=== PATIENT | female | born 1945 | race Caucasian/White ===

== ENCOUNTER → 2018-11-09 | Outpatient (CLI) | payer MEDICARE ==
--- NOTE | 2018-11-18 09:27 | MM ---
Reason for exam: screening (asymptomatic). Last mammogram was performed 6 years and 2 months ago. History: Patient is postmenopausal. Took estrogen for 6 years 8 months. MG Screening Mammo w CAD Bilateral CC and MLO view(s) were taken. Prior study comparison: September 07, 2012, bilateral digital screening mammo w/CAD. August 14, 2010, bilateral digital screening mammogram. The breast tissue is heterogeneously dense. This may lower the sensitivity of mammography. No suspicious abnormality. No significant changes when compared with prior studies. ASSESSMENT: Negative, BI-RAD 1 RECOMMENDATION: Routine screening mammogram of both breasts in 1 year.
== END | disposition home or self-care (01) ==
LOC: RADMAMWWP 15:41
PROVIDERS: ATTEND Internal Medicine
DX: Z12.31 Encounter for screening mammogram for malignant neoplasm of breast (principal)
CPT/HCPCS: 77067

== ENCOUNTER → 2018-11-13 | Outpatient (CLI) | payer MEDICARE ==
--- NOTE | 2018-11-14 06:23 | US ---
EXAMINATION TYPE: US kidneys/renal and bladder DATE OF EXAM: 11/13/2018 COMPARISON: NONE CLINICAL HISTORY: N18.3 CKD. Difficult exam due to overlying bowel gas EXAM MEASUREMENTS: Right Kidney: 11.4 x 3.9 x 4.9 cm Left Kidney: 10.4 x 4.9 x 4.3 cm Right Kidney: No hydronephrosis or masses seen Left Kidney: Cystic area lower pole measuring 4.5 x 4.6 x 4.1 cm Bladder: wnl Bilateral Jets seen: Yes There is no evidence for hydronephrosis at this point in time. No nephrolithiasis is seen. The ur inary bladder is anechoic. Bilateral ureteral jets are seen. Suboptimal study due to overlying bowel gas per technologist. There appears to be 4.6 x 4.5 cm exophy tic simple appearing cyst lower pole of the left kidney. IMPRESSION: Suboptimal study, no hydronephrosis is noted bilaterally. Exophytic simple appearing 4.6 cm cyst lowe r pole of left kidney is noted.
== END ==
LOC: RADUSWWP 15:23
PROVIDERS: ATTEND Internal Medicine
DX: N28.1 Cyst of kidney, acquired (principal); N18.3 Chronic kidney disease, stage 3 (moderate)
CPT/HCPCS: 76770

== ENCOUNTER → 2019-02-21 | Outpatient (CLI) | payer MEDICARE ==
--- NOTE | 2019-02-22 09:39 | XR ---
EXAMINATION TYPE: XR lumbar spine 2 or 3V DATE OF EXAM: 02/21/2019 COMPARISON: NONE HISTORY: 73-year-old female low back pain TECHNIQUE: 3 views FINDINGS: 5 lumbar type vertebral bodies. Hypertrophic facet arthropathy throughout. 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 Moderate to advanced multilevel discogenic plate degenerative change with disc space loss, disc vacuum, endplate sclerosis, and spondylosis. Eusebio tebral body heights are preserved. There is grade 1 retrolisthesis at L2-L5 levels and grade 1 jeremiah listhesis at L5-S1. IMPRESSION: 1. No vertebral compression collapse. 2. Moderate to advanced multilevel disc/endplate degenerative changes as well as hypertrophic facet a rthropathy. 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
--- NOTE | 2019-02-22 10:21 | XR ---
EXAMINATION TYPE: XR cervical spine limited DATE OF EXAM: 02/21/2019 COMPARISON: NONE HISTORY: 73-year-old female segmental and somatic dysfunction of cervical spine TECHNIQUE: 4 views FINDINGS: Hypertrophic facet and uncovertebral joint arthropathy, greatest in the mid cervical spine where mode rate disc/endplate degenerative changes also present with disc plates narrowing, endplate spondylosis , and endplate irregularity. Alignment is maintained. No predental space widening or prevertebral sof t tissue swelling. Odontoid view is normal. IMPRESSION: Moderate spondylotic changes especially in the mid to lower cervical spine. No prevertebral soft tiss ue swelling or malalignment.
== END | disposition home or self-care (01) ==
LOC: RADXRMAIN 16:10
PROVIDERS: ATTEND Chiropractor
DX: M43.17 Spondylolisthesis, lumbosacral region (principal); M47.816 Spondylosis without myelopathy or radiculopathy, lumbar region; M46.96 Unspecified inflammatory spondylopathy, lumbar region; M48.26 Kissing spine, lumbar region
CPT/HCPCS: 72040; 72100

== ENCOUNTER → 2019-04-05 | Outpatient (CLI) | payer MEDICARE ==
--- NOTE | 2019-04-05 14:30 | MR ---
EXAMINATION TYPE: MR lumbar spine wo con DATE OF EXAM: 04/05/2019 COMPARISON: HISTORY: low back pain TECHNIQUE: Multiplanar, multisequence images of the lumbar spine were acquired. FINDINGS: There is multilevel retrolisthesis/malalignment of the lumbar spine. There is mild retrolis thesis of L2 on L3, L3 on L4, and to a lesser degree L4 on L5. Multilevel disc desiccation is seen. D egenerative endplate changes are present throughout. There is a T1/T2 hyperintense vertebral body hem angioma of T12. There is a partially visualized T2 hyperintense and T1 hypointense probable left chery l cyst measuring up to 4.8 cm that could be confirmed with ultrasound. Additional too small to accura tely characterize left upper pole renal lesion is seen as well as possible hepatic lesion versus wang fact. These are only partially visualized. L1-L2: There is a broad-based disc bulge and mild facet arthropathy without neural foraminal narrowin g. No spinal canal stenosis. L2-L3: There is a broad-based disc bulge, ligament of flavum buckling and facet arthropathy resulting in moderate bilateral neural foraminal narrowing and moderate spinal canal stenosis. L3-L4: There is a broad-based disc bulge, ligamentum flavum buckling and a facet arthropathy contribu ting to severe spinal canal stenosis and moderate to severe right neural foraminal narrowing as well as moderate left neural foraminal narrowing. L4-L5: There is a broad-based disc bulge and facet arthropathy as well as ligamentum flavum buckling contributing to moderate to severe bilateral neural foraminal narrowing and moderate spinal canal henrik nosis. L5-S1: There is a right paracentral disc herniation superimposed upon a broad-based disc bulge with f acet arthropathy contributing to moderate bilateral neural foraminal narrowing and mild spinal canal stenosis. IMPRESSION: 1. Multilevel malalignment of the lumbar spine is likely chronic with retrolisthesis throughout the l umbar spine. No vertebral body height loss. 2. Severe multilevel degenerative disc disease resulting in moderate spinal canal stenosis at L2-L3 a nd L4-L5, severe spinal canal stenosis at L3-L4, and mild spinal canal stenosis at L5-S1 with variabl e degrees of neural foraminal narrowing as detailed above (mild to severe). 3. Right paracentral disc herniation at L5-S1 contributing to mild spinal canal stenosis. 4. Partially visualized too small to accurately characterize subcentimeter hepatic and left renal les ions and probable left renal cyst measuring up to 4.8 cm in its visualized portion.
== END | disposition home or self-care (01) ==
LOC: RADMRIMAIN 11:19
PROVIDERS: ATTEND Internal Medicine
DX: M48.061 Spinal stenosis, lumbar region without neurogenic claudication (principal); M48.07 Spinal stenosis, lumbosacral region; M43.16 Spondylolisthesis, lumbar region; M51.36 Other intervertebral disc degeneration, lumbar region
CPT/HCPCS: 72148

== ENCOUNTER → 2024-04-04 | Outpatient (CLI) | payer MEDICARE ==
--- NOTE | 2024-04-04 11:36 | US ---
EXAMINATION TYPE: US kidneys/renal and bladder DATE OF EXAM: 04/04/2024 COMPARISON: 11/13/18 CLINICAL INDICATION: Female, 78 years old with history of N18.9 CKD; CKD EXAM MEASUREMENTS: Right Kidney: 10.9 x 4.0 x 4.0 cm Left Kidney: 10.8 x 4.4 x 5.0 cm Right Kidney: No hydronephrosis or masses seen Left Kidney: Cystic area seen in inf pole measuring 5.0 x 5.1 x 4.5cm Bladder: Contracted Bilateral Jets seen: No There is no evidence for hydronephrosis at this point in time. No nephrolithiasis is seen. No soo s are identified. The urinary bladder is anechoic. Bilateral ureteral jets are seen. IMPRESSION: 1. No evidence for obstructive uropathy. 2. Cortical medullary differentiation maintained.
== END | disposition home or self-care (01) ==
LOC: RADUSWWP 10:06
PROVIDERS: ATTEND Internal Medicine
DX: N18.9 Chronic kidney disease, unspecified (principal)
CPT/HCPCS: 76770

== ENCOUNTER 2024-05-04 14:09 | Emergency (ER) | payer MEDICARE ==
[2024-05-04] MEDS ORDERED: DIPH,PERTUS(ACELL)TETVAC-LF 0.5 ML VIAL IM ONE (14:15)
[2024-05-04 14:16] LABS: Glucose,Whole Blood 154 mg/dL (70-110)
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
[2024-05-04] MEDS ORDERED: HYDROmorphone 0.5 MG/0.5 ML SYRINGE IVP STA (14:22)
[2024-05-04 14:33] LABS: Basophils # (A) 0.1 k/uL (0-0.2); Basophils % (A) 0 %; Eosinophils # (A) 0.1 k/uL (0-0.7); Eosinophils % (A) 1 %; HCT 33.6 % (34.0-46.0); HGB 10.6 gm/dL (11.4-16.0); Lymphocytes # (A) 3.7 k/uL (1.0-4.8); Lymphocytes % (A) 23 %; MCHC 31.5 g/dL (31.0-37.0); MCV 95.2 fL (80.0-100.0); Mean Platelet Volume 8.1; Monocytes # (A) 0.4 k/uL (0-1.0); Monocytes % (A) 3 %; Neutrophils # (A) 11.5 k/uL (1.3-7.7); Neutrophils % (A) 72 %; Platelet Count 304 k/uL (150-450); RBC 3.53 m/uL (3.80-5.40); RDW 13.2 % (11.5-15.5); WBC 15.9 k/uL (3.8-10.6)
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
[2024-05-04 14:40] LABS: Partial Thromboplastin Time 22.1 sec (22.0-30.0); Prothrombin Time 10.9 sec (10.0-12.5)
[2024-05-04] MEDS: SODIUM CHLORIDE 0.9% 1,000 ML IV STA (14:47)
[2024-05-04] MEDS: LABETALOL 5 MG/ML VIAL MDV IVP STA (14:47)
[2024-05-04 14:48] LABS: ALT 54 U/L (4-34); AST 82 U/L (14-36); African American GFR (CKD) 50 (>60 ml/min/1.73 sqM); Albumin 3.5 g/dL (3.5-5.0); Alcohol <10 mg/dL; Alkaline Phosphatase 92 U/L (38-126); Anion Gap 6 mmol/L; Blood Urea Nitrogen 24 mg/dL (7-17); Calcium 8.6 mg/dL (8.4-10.2); Carbon Dioxide 22 mmol/L (22-30); Chloride 111 mmol/L (98-107); Glucose 142 mg/dL (74-99); Non-African American GFR(CKD) 44 (>60 ml/min/1.73 sqM); Potassium 4.5 mmol/L (3.5-5.1); Sodium 139 mmol/L (137-145); Total Bilirubin 0.6 mg/dL (0.2-1.3)
[2024-05-04] MEDS: MORPHINE SULFATE 2 MG/ML SYRINGE IVP STA (14:49)
[2024-05-04 15:27] LABS: Appearance,Urine Clear (Clear); Bilirubin,Urine Negative (Negative); Blood,Urine Moderate (Negative); Color,Urine Colorless; Glucose,Urine (UA) Negative (Negative); Hyaline Casts,Urine 3 /lpf (0-2); Ketones,Urine Negative (Negative); Leukocyte Esterase,Urine Moderate (Negative); Nitrite,Urine Negative (Negative); Protein,Urine 1+ (Negative); RBC,Urine 72 /hpf (0-5); Squamous Epithelial Cell,Urine 1 /hpf (0-4); Urobilinogen,Urine <2.0 mg/dL (<2.0); WBC,Urine 39 /hpf (0-5)
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
[2024-05-04 15:36] LABS: Amphetamine Screen,Urine Not Detected (NotDetected); Barbiturate Screen,Urine Not Detected (NotDetected); Benzodiazepines Screen,Urine Not Detected (NotDetected); Cocaine Screen,Urine Not Detected (NotDetected); Methadone Screen, Urine Not Detected (NotDetected); Opiate Screen,Urine Detected (NotDetected); Oxycodone Screen, Urine Not Detected (NotDetected); Phencyclidine Screen,Urine Not Detected (NotDetected); Tricyclic Antidepressant,Urine Not Detected (NotDetected); Urn Cannabinoid Scrn Not Detected (NotDetected)
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
[2024-05-04 16:38] VITALS: BP 160/62; PULSE 67; RESP 16
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
== END 2024-05-04 16:38 | disposition other institution (70) ==
LOC: MERGE 14:09 → EC 14:09
DX: S32.512A Fracture of superior rim of left pubis, initial encounter for closed fracture (principal); S32.502A Unspecified fracture of left pubis, initial encounter for closed fracture; S32.049A Unspecified fracture of fourth lumbar vertebra, initial encounter for closed fracture; S01.01XA Laceration without foreign body of scalp, initial encounter; S06.0XAA Concussion with loss of consciousness status unknown, initial encounter; Z88.8 Allergy status to other drugs, medicaments and biological substances; V89.2XXA Person injured in unspecified motor-vehicle accident, traffic, initial encounter; Y92.410 Unspecified street and highway as the place of occurrence of the external cause
CPT/HCPCS: 36415; 86900; 86901; 80053; 83605; 84484; 85025; 85610; 85730; 86850; 81001; 80306; 80320; 72170; 71045; 72125; 70486; 70450; 71260; 74177; 99291; 96374; 96375; 96361; G0390; J2270; Q9967; J1920

== ENCOUNTER → 2024-09-25 | Outpatient (CLI) | payer MEDICARE ==
--- NOTE | 2024-09-25 15:25 | US ---
EXAMINATION TYPE: US carotid duplex BILAT DATE OF EXAM: 09/25/2024 COMPARISON: NONE CLINICAL INDICATION: Female, 79 years old with history of R42 DIZZINESS AND GIDDINESS R55 SYNCOPE AND COLLAP; Additional History: R09.89 Carotid bruit TECHNIQUE: Grayscale, color Doppler and spectral Doppler evaluation of the bilateral carotid systems and vertebral arteries. Indirect Doppler criteria was utilized. FINDINGS: EXAM MEASUREMENTS: RIGHT: Peak Systolic Velocity (PSV) cm/sec ----- Right CCA: 76.4 ----- Right ICA: 106.9 ----- Right ECA: 222.7 ICA/CCA ratio: 1.4 RIGHT: End Diastole cm/sec ----- Right CCA: 11.9 ----- Right ICA: 22.8 ----- Right ECA: 0.0 LEFT: Peak Systolic Velocity (PSV) cm/sec ----- Left CCA: 105.1 ----- Left ICA: 106.9 ----- Left ECA: 141.5 ICA/CCA ratio: 1.0 LEFT: End Diastole cm/sec ----- Left CCA: 14.9 ----- Left ICA: 21.5 ----- Left ECA: 0.0 VERTEBRALS (direction of flow): Right Vertebral: Antegrade Left Vertebral: Rhythm: Normal [employer] NOTES: Bilateral elevated ECA velocities. Plaque at right bulb extending into proximal E CA. Color Doppler imaging shows patency with blood flow throughout the carotid artery. Spectral waveforms are within normal limits. IMPRESSION: 1. No ultrasound evidence for hemodynamically significant stenosis of the bilateral internal carotid arteries. 2. 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 Criteria for Assigning % of Stenosis / Diameter reduction (Estimation based on the indirect measurements of the internal carotid artery velocities (ICA PSV). 1. Normal (no stenosis)=ICA PSV < 125 cm/s: ratio < 2.0: ICA EDV<40 cm/s. 2. Less than 50% stenosis=ICA PSV < 125 cm/s: ratio < 2.0: ICA EDV<40 cm/s. 3. 50 to 69% stenosis=ICA PSV of 125 to 230 cm/s: ration 2.0 ? 4.0: ICA EDV 40-100 cm/s. 4. Greater than 70% stenosis to near occlusion= ICA PSV > 230 cm/s: ratio > 4.0: ICA EDV > 100 cm/s. 5. Near occlusion= ICA PSV velocities may be low or undetectable: variable ratio and ICA EDV. 6. Total occlusion=unable to detect flow. [facility], , 09/25/2024 3:22 PM
--- NOTE | 2024-09-26 07:10 | CA ---
Transthoracic Echo Report Name: Tiffanie Cao Age: 79 Gender: F : 1945 Exam Date: 09/25/2024 15:09 Exam Location: [place] [facility] Ht (in): 61 Wt (lb): 149 Ordering Physician: Yenny Perez MD Attending/Referring Phys: Yenny Perez MD Drier Helper Mirtha Keen, INEZ Procedure CPT: Indications: R42, R55 Cardiac Hx: Technical Quality: Good Contrast 1: Total Dose (mL): Contrast 2: Total Dose (mL): MEASUREMENTS (Male / Female) Normal Values 2D ECHO LV Diastolic Diameter PLAX 3.8 cm 4.2 - 5.9 / 3.9 - 5.3 cm LV Systolic Diameter PLAX 2.8 cm IVS Diastolic Thickness 1.2 cm 0.6 - 1.0 / 0.6 - 0.9 cm LVPW Diastolic Thickness 1.3 cm 0.6 - 1.0 / 0.6 - 0.9 cm LV Relative Wall Thickness 0.6 RV Internal Dim ED PLAX 3.1 cm LA Systolic Diameter LX 3.8 cm 3.0 - 4.0 / 2.7 - 3.8 cm LV Diastolic Volume MOD BP 87.9 cm??? 67 - 155 / 56 - 104 cm??? LV Systolic Volume MOD BP 33.9 cm??? - 58 / 19 - 49 cm??? LV Ejection Fraction MOD BP 61.5 % >= 55 % LV Cardiac Index MOD BP 2127.6 cm???/min???m??? LV Diastolic Volume MOD 4C 92.5 cm??? LV Systolic Volume MOD 4C 37.8 cm??? LV Ejection Fraction MOD 4C 59.2 % LV Cardiac Index MOD 4C 2155.7 cm???/min???m??? LV Diastolic Length 4C 7.0 cm LV Systolic Length 4C 6.0 cm LV Diastolic Volume MOD 2C 83.4 cm??? LV Systolic Volume MOD 2C 29.9 cm??? LV Ejection Fraction MOD 2C 64.1 % LV Cardiac Index MOD 2C 2106.7 cm???/min???m??? LV Diastolic Length 2C 7.1 cm LV Systolic Length 2C 6.1 cm LA Volume 50.3 cm??? 18 - 58 / 22 - 52 cm??? LA Volume Index 29.1 cm???/m??? 16 - 28 cm???/m??? M-MODE Aortic Root Diameter MM 2.9 cm AV Cusp Separation MM 1.9 cm DOPPLER AV Peak Velocity 149.0 cm/s AV Peak Gradient 8.9 mmHg MV Area PHT 2.9 cm??? Mitral E Point Velocity 74.4 cm/s Mitral A Point Velocity 110.2 cm/s Mitral E to A Ratio 0.7 MV Deceleration Time 265.2 ms TR Peak Velocity 213.7 cm/s TR Peak Gradient 18.3 mmHg Right Ventricular Systolic Press 22.8 mmHg FINDINGS Left Ventricle Left ventricular ejection fraction is estimated at 55-60 %. Small left ventricular cavity. Mildly increased left ventricular wall thickness. Normal left ventricular systolic function with no obvious regional wall motion abnormalities. Right Ventricle Normal right ventricular size and function. Right ventricular systolic pressure within normal limits. Right Atrium Normal right atrial size. No right atrial thrombus or mass seen. Left Atrium Mildly increased left atrial volume. No left atrial thrombus or mass present. Mitral Valve Structurally normal mitral valve. Mild mitral regurgitation. Aortic Valve Trileaflet aortic valve. No aortic valve stenosis or regurgitation. Tricuspid Valve Structurally normal tricuspid valve. Mild tricuspid regurgitation. Pulmonic Valve Structurally normal pulmonic valve. Trace pulmonic regurgitation. Pericardium No pericardial or pleural effusion. Aorta Normal size aortic root and proximal ascending aorta. CONCLUSIONS 1. Normal left ventricular size and systolic function 2. Mild mitral and tricuspid regurgitation Previewed by: Dr. Apryl Cartwright MD (Electronically Signed) Final Date: 26 September 2024 07:10
== END | disposition home or self-care (01) ==
LOC: RADUSWWP 14:38
PROVIDERS: ATTEND Internal Medicine
DX: I65.23 Occlusion and stenosis of bilateral carotid arteries (principal); R09.89 Other specified symptoms and signs involving the circulatory and respiratory systems; R42 Dizziness and giddiness; R55 Syncope and collapse
CPT/HCPCS: 93306; 93880

== ENCOUNTER 2025-01-23 13:04 | Observation (INO) | payer MEDICARE ==
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
[2025-01-23 13:48] LABS: Basophils # (A) 0.1 k/uL (0-0.2); Basophils % (A) 1 %; Eosinophils # (A) 0.2 k/uL (0-0.7); Eosinophils % (A) 3 %; HCT 36.8 % (34.0-46.0); HGB 11.4 gm/dL (11.4-16.0); Hypochromasia Moderate; Lymphocytes # (A) 1.9 k/uL (1.0-4.8); Lymphocytes % (A) 29 %; MCH 28.2 pg (25.0-35.0); MCV 90.9 fL (80.0-100.0); Mean Platelet Volume 7.8; Monocytes # (A) 0.4 k/uL (0-1.0); Monocytes % (A) 6 %; Neutrophils # (A) 3.8 k/uL (1.3-7.7); Neutrophils % (A) 60 %; Platelet Count 372 k/uL (150-450); RBC 4.05 m/uL (3.80-5.40); RDW 13.6 % (11.5-15.5); WBC 6.4 k/uL (3.8-10.6)
[2025-01-23] MEDS: hydrALAZINE HCL 20 MG/ML 1 ML VIAL IVP STA (13:51)
[2025-01-23 14:00] LABS: Potassium 4.4 mmol/L (3.5-5.1)
[2025-01-23 14:01] LABS: ALT 14 U/L (4-34); AST 18 U/L (14-36); African American GFR (CKD) 71 (>60 ml/min/1.73 sqM); Alkaline Phosphatase 118 U/L (38-126); Anion Gap 8 mmol/L; Blood Urea Nitrogen 29 mg/dL (7-17); Calcium 9.2 mg/dL (8.4-10.2); Carbon Dioxide 25 mmol/L (22-30); Chloride 105 mmol/L (98-107); Glucose 277 mg/dL (74-99); Magnesium 1.9 mg/dL (1.6-2.3); Non-African American GFR(CKD) 62 (>60 ml/min/1.73 sqM); Sodium 138 mmol/L (137-145); Total Bilirubin 0.4 mg/dL (0.2-1.3)
--- NOTE | 2025-01-23 14:38 | XR ---
EXAMINATION TYPE: XR chest 2V DATE OF EXAM: 01/23/2025 CLINICAL INDICATION: Female, 79 years old with history of Chest Pain, TECHNIQUE: Frontal and lateral views of the chest are obtained. COMPARISON: Prior CT May 04, 2024 FINDINGS: There is no focal air space opacity, pleural effusion, or pneumothorax seen. Mild cardiome iveth is redemonstrated. The osseous structures are intact. IMPRESSION: Mild Cardiomegaly without acute pulmonary process. [facility], , 01/23/2025 2:36 PM
[2025-01-23] MEDS: SODIUM CHLORIDE 0.9% 1,000 ML IV ONE (15:21)
[2025-01-23] MEDS ORDERED: DEXTROSE 50% SYRINGE 50 ML IVP PRN ×2 (16:32)
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
[2025-01-23] MEDS ORDERED: carvediloL 6.25 MG TAB PO SCH (17:30)
[2025-01-23 18:20] LABS: Glucose,Whole Blood 186 mg/dL (70-110)
[2025-01-23] MEDS: INSULIN LISPRO (HumaLOG) 100 UNIT/ML 10 mL VL SQ SCH (18:30)
[2025-01-23] MEDS: carvediloL 12.5 MG TAB PO SCH (18:30)
[2025-01-23 20:33] LABS: Glucose,Whole Blood 153 mg/dL (70-110)
[2025-01-23] MEDS: AMITRIPTYLINE HCL 10 MG TAB PO SCH (20:53)
[2025-01-23] MEDS: ATORVASTATIN 10 MG TAB PO SCH (20:54)
[2025-01-23] MEDS: INSULIN GLARGINE (LANTUS) 100 UNIT/ML SYR SQ SCH (21:03)
[2025-01-23] MEDS ORDERED: hydrALAZINE HCL 10 MG TAB PO SCH (22:00)
[2025-01-23] MEDS: cloNIDine HCL 0.1 MG TAB PO PRN (23:16)
[2025-01-23] MEDS: ACETAMINOPHEN TAB 325 MG TAB PO PRN (23:25)
[2025-01-24 05:54] LABS: Glucose,Whole Blood 254 mg/dL (70-110)
[2025-01-24] MEDS: PANTOPRAZOLE 40 MG TABLET PO SCH (06:10)
[2025-01-24] MEDS: CHOLECALCIFEROL 25 MCG (1000 IU) TABLET PO SCH (08:46)
[2025-01-24] MEDS: LOSARTAN 50 MG TAB PO SCH (08:46)
[2025-01-24] MEDS: ENOXAPARIN 40 MG/0.4 ML SYRINGE SQ SCH (08:46)
[2025-01-24] MEDS: TIMOLOL 0.5% OPHTH DROPS 5 ML BTL BOTH EYES SCH (08:47)
--- NOTE | 2025-01-24 08:56 | US ---
EXAMINATION TYPE: US renal artery duplex complete DATE OF EXAM: 01/24/2025 Exam done portable COMPARISON: CT May 04, 2024 CLINICAL INDICATION: Female, 79 years old with history of HTN; TECHNIQUE: Grayscale, color Doppler and spectral Doppler imaging of the bilateral renal arteries and kidneys. FINDINGS: MEASUREMENTS: RENAL SIZE: Right Kidney: 10.5 x 4.2 x 4.6cm Left Kidney: 9.9 x 4.8 x 4.6cm Right Kidney: wnl Left Kidney: 0.7cm echogenic focus inferior pole Abd Aorta: atherosclerotic changes RESISTANCE INDEX Right: 0.81 Left: 0.85 RA/AO RATIO (< 3.5 ) Right: 1.1 Left: 2.2 RENAL ARTERY VELOCITY ( < 180 cm/s) Right: 181.2 Left: 342.7 Left mid renal artery obscured by overlying bowel gas IMPRESSION: Suboptimal study. Abnormal elevated velocity to the left renal artery hemodynamically sig nificant focal stenosis at its origin cannot be excluded. Consider further investigation with direct catheter angiogram. [facility], , 01/24/2025 8:54 AM
[2025-01-24] MEDS ORDERED: hydrALAZINE HCL 20 MG/ML 1 ML VIAL IVP PRN (11:35)
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
[2025-01-24 12:05] LABS: Glucose,Whole Blood 304 mg/dL (70-110)
[2025-01-24 14:13] LABS: Appearance,Urine Cloudy (Clear); Bacteria,Urine Many /hpf; Bilirubin,Urine Negative (Negative); Blood,Urine Negative (Negative); Color,Urine Colorless; Glucose,Urine (UA) 1+ (Negative); Ketones,Urine Negative (Negative); Leukocyte Esterase,Urine Large (Negative); Mucus,Urine Rare /hpf; Nitrite,Urine Positive (Negative); Protein,Urine 1+ (Negative); Specific Gravity,Urine 1.015 (1.001-1.035); Squamous Epithelial Cell,Urine 2 /hpf (0-4); Urobilinogen,Urine <2.0 mg/dL (<2.0); WBC,Urine 136 /hpf (0-5)
--- NOTE | 2025-01-24 14:23 | P.PN ---
Subjective Progress Note Date: 01/24/25 79-year-old female with PMH of hypertension, diabetes mellitus, GERD, and CKD stage IIIa, with baseline createnine 1.1-1.2, who presented to the emergency department with concerns that her blood pressure has not been well-controlled at home for the past week. She states that has been persistently elevated for some time now. The patient's daughter is at bedside while seen in the emergency department, stating that she moved back to town approximately 3 weeks ago and has noticed that it has been persistently elevated throughout the duration of her time back home. The patient was seen at the [employer] [employer] office recently who increased her dose of nifedipine, however it has been noted that this has be en no difference in her blood pressure control at home. She endorses having headaches some of the time when she feels as though her blood pressure is high, she then would check her blood pressure at home and noticed that it is elevated. When seen, she is resting comfortably in bed without any acute complaints. Denying chest pain, palpitations, shortness of breath or headache at this time. 01/24 - Patient seen and examined at bedside this morning. She states she slept comfortably and has no acute complaints at this time. However, her blood pressure remains elevated >190-200/60's. She denies any changes in vision, headaches, chest pain, shortness of breath. Renal duplex ultrasound was c ompleted this morning which showed possibility of left renal artery stenosis. Nephrology, which she follows up with as an outpatient, was consulted. Urinalysis completed today showed evidence of asymptomatic bacteria, as she has no symptoms or complaints associated with it. REVIEW OF SYSTEMS: Pertinent positives and negatives noted in HPI. Physical Exam: General: nontoxic, no distress, appears at stated age Derm: warm, dry, intact Head: atraumatic, normocephalic, symmetric Eyes: EOMI, anicteric sclera Mouth: no lip lesion, mucus membranes moist Cardiovascular: S1 S2 reg, no murmur, rubs, or gallops Lungs: CTA bilateral, no rales, no accessory muscle use Abdominal: soft, non-tender to palpataion, no appreciable organomegaly Extremities: no gross muscle atrophy, no edema, no contractures Neuro: Alert, Oriented, CNII-XII grossly intact, gait normal Psych: well appearing, appropriate affect Data Received Today: Labs: Hemoglobin A1c 8.2 -UA: 1+ protein, 1+ glucose, positive nitrite, large amount of leukocyte esterase, 136 urine WBCs Imagining: Bilateral renal duplex ultrasound showed abnormally elevated velocity to the left renal artery hemodynamically significant focal stenosis at its origin cannot be excluded. Assessment and plan 78-year-old female with PMH of hypertension, diabetes mellitus, GERD, CKD stage IIIb who presents the emergency department with concerns of persistently elevated blood pressure. #Hypertensive urgency in the setting of chronic, uncontrolled essential hypertension -Continue with carvedilol to 12.5 mg twice daily and losartan 100 mg daily -Nifedipine increased to 60 mg twice daily -Hydralazine 10 mg IVP every 6 hours as needed -Continue to monitor vital signs -Renal duplex ultrasound ordered, showed possible evidence of left renal artery stenosis -Plasma metanephrine, aldosterone, renin, cortisol ordered, currently pending -Renal MRA ordered by nephrology, currently pending #Diabetes mellitus -Initiated Lantus 5 units in the morning and nightly and sliding scale Holding oral medications Begin Accu-Cheks and low-dose sliding scale, monitor for hypoglycemia HbA1c pending #GERD -Resume home omeprazole 20 mg daily #Hyperlipidemia -Resumed home simvastatin 20 mg daily #History of CKD stage IIIa, with baseline creatinine 1.1-1.2 -Kidney function noted to be markedly improved on lab work done today as compared to previous -Creatinine 0.89 today as compared to 1.4 on 11/15/2024 -GFR today shown to be 62 as compared to most recent blood work at outside clinic showing GFR of 38 -Her medical management recently altered with the discontinuation of metformin secondary to worsening kidney function GI prophylaxis: Omeprazole 20 mg daily DVT prophylaxis: Lovenox 40 mg [address] discharge [address]: Home Anticipated discharge time: Pending clinical course Dictation was produced using [employer] dictation software. please excuse any grammatical, word or spelling errors. Misael Chong MD PGY-1 IM I have seen and evaluated the patient today. Discussed with the resident and agree with the residents finding and plan as documented in the resident's note. Changes highlighted in blue font. Objective - Vital Signs Vital signs: Vital Signs Temp 98.0 F 01/24/25 06:03 Pulse 62 01/24/25 06:03 Resp 17 01/24/25 06:03 BP 204/65 01/24/25 10:36 Pulse Ox 96 01/24/25 06:03 FiO2 Intake & Output 01/23/25 01/24/25 01/24/25 18:59 06:59 18:59 Intake Total 360 Balance 360 Weight 70.307 kg 70.307 kg Intake: Oral 360 Other: # Voids 3 1 # Bowel Movements 1 - Labs CBC & Chem 7: 01/23/25 13:42 01/23/25 13:42 Labs: Abnormal Lab Results - Last 24 Hours (Table) 01/23/25 01/23/25 01/24/25 Range/Units 18:18 20:32 04:50 POC Glucose (mg/dL) 186 H 153 H (70-110) mg/dL Hemoglobin A1c 8.2 H (<=6.0) % 01/24/25 01/24/25 Range/Units 05:52 12:04 POC Glucose (mg/dL) 254 H 304 H (70-110) mg/dL Hemoglobin A1c (<=6.0) %
--- NOTE | 2025-01-24 15:46 | MR ---
INDICATION: Patient age:Female; 79 years old; Reason for study: htn, renal artery stenosis; PHH. COMPARISON: Renal artery ultrasound 01/24/2025, CT chest abdomen pelvis 09/25/2024, renal ultrasound , 11/13/2018. TECHNIQUE: Multiplanar, multi-sequence imaging as well as [id number] and contrast enhanced imagin g was performed of the abdomen and pelvis. The patient was given 7 cc of Gadobutrol intravenously. M aximum intensity projection reformatted images were submitted for evaluation. FINDINGS: MAGNETIC RESONANCE ANGIOGRAPHY: The abdominal aorta does not demonstrate aneurysmal dilatation. Ther e is atherosclerotic calcifications of the abdominal aorta. The origins of the superior mesenteric ar isaac, renal arteries, inferior mesenteric artery, and celiac axis are patent. There is moderate steno sis involving the proximal left renal artery. Mild to moderate stenosis involving the proximal celiac axis. The iliac vessels are normal in morphology. Abdomen: Dropout of signal on in phase imaging involving the spleen and liver consistent with hemosid erosis. The adrenal glands, kidneys, and pancreas do appear unremarkable. IMPRESSION: 1. 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 2. Mild to moderate stenosis involving the proximal celiac axis. 3. Hemosiderosis involving the liver and spleen. [facility], , 01/24/2025 3:44 PM
[2025-01-24 17:15] LABS: Glucose,Whole Blood 203 mg/dL (70-110)
[2025-01-24 19:47] LABS: Glucose,Whole Blood 268 mg/dL (70-110)
[2025-01-25 05:29] LABS: Glucose,Whole Blood 123 mg/dL (70-110)
[2025-01-25 06:16] LABS: Basophils % (A) 1 %; Eosinophils # (A) 0.3 k/uL (0-0.7); Eosinophils % (A) 4 %; HCT 31.4 % (34.0-46.0); HGB 10.1 gm/dL (11.4-16.0); Hypochromasia Moderate; Lymphocytes # (A) 2.4 k/uL (1.0-4.8); Lymphocytes % (A) 34 %; MCV 90.5 fL (80.0-100.0); Mean Platelet Volume 8.2; Monocytes # (A) 0.4 k/uL (0-1.0); Monocytes % (A) 6 %; Neutrophils # (A) 3.7 k/uL (1.3-7.7); Neutrophils % (A) 53 %; Platelet Count 342 k/uL (150-450); RBC 3.47 m/uL (3.80-5.40); RDW 13.7 % (11.5-15.5)
[2025-01-25 06:28] LABS: African American GFR (CKD) 56 (>60 ml/min/1.73 sqM); Anion Gap 5 mmol/L; Blood Urea Nitrogen 29 mg/dL (7-17); Calcium 9.1 mg/dL (8.4-10.2); Carbon Dioxide 26 mmol/L (22-30); Chloride 106 mmol/L (98-107); Glucose 111 mg/dL (74-99); Non-African American GFR(CKD) 49 (>60 ml/min/1.73 sqM); Potassium 4.3 mmol/L (3.5-5.1); Sodium 137 mmol/L (137-145)
[2025-01-25 08:00] VITALS: BP 146/67; PULSE 67; RESP 16; TEMP 98.4
[2025-01-25] MEDS: INSULIN GLARGINE (LANTUS) 100 UNIT/ML SYR SQ SCH (08:54)
[2025-01-25] MEDS: ASPIRIN 81 MG PO SCH (08:54)
[2025-01-25] MEDS: CHLORTHALIDONE 25 MG TAB PO SCH (08:54)
--- NOTE | 2025-01-25 10:46 | P.PN ---
Subjective Patient is seen in follow-up for chronic kidney disease and hypertension. Blood pressure better controlled this morning. Renal function at baseline. Denies chest pain or shortness of breath. Vital signs are stable. General: No acute distress. HEENT: Head exam is unremarkable. LUNGS: No audible rhonchi or wheezes. HEART: Rate and Rhythm are regular. ABDOMEN: Nontender. EXTREMITITES: No edema. Objective - Vital Signs Vital signs: Vital Signs Temp 98.4 F 01/25/25 07:00 Pulse 67 01/25/25 07:00 Resp 16 01/25/25 07:00 BP 146/67 01/25/25 07:00 Pulse Ox 96 01/25/25 07:00 FiO2 Intake & Output 01/24/25 01/25/25 01/25/25 18:59 06:59 18:59 Intake Total 1080 118 Balance 1080 118 Intake: Oral 1080 118 Other: # Voids 1 2 # Bowel Movements 1 - Labs CBC & Chem 7: 01/25/25 05:05 01/25/25 05:05 Labs: Abnormal Lab Results - Last 24 Hours (Table) 01/24/25 01/24/25 01/24/25 Range/Units 12:04 13:45 17:14 RBC (3.80-5.40) m/uL Hgb (11.4-16.0) gm/dL Hct (34.0-46.0) % BUN (7-17) mg/dL Creatinine (0.52-1.04) mg/dL Glucose (74-99) mg/dL POC Glucose (mg/dL) 304 H 203 H (70-110) mg/dL Urine Appearance Cloudy H (Clear) Urine Protein 1+ H (Negative) Urine Glucose (UA) 1+ H (Negative) Urine Nitrite Positive H (Negative) Ur Leukocyte Esterase Large H (Negative) Urine WBC 136 H (0-5) /hpf Urine Bacteria Many H (None) /hpf Urine Mucus Rare H (None) /hpf 01/24/25 01/25/25 01/25/25 Range/Units 19:41 05:05 05:05 RBC 3.47 L (3.80-5.40) m/uL Hgb 10.1 L (11.4-16.0) gm/dL Hct 31.4 L (34.0-46.0) % BUN 29 H (7-17) mg/dL Creatinine 1.09 H (0.52-1.04) mg/dL Glucose 111 H (74-99) mg/dL POC Glucose (mg/dL) 268 H (70-110) mg/dL Urine Appearance (Clear) Urine Protein (Negative) Urine Glucose (UA) (Negative) Urine Nitrite (Negative) Ur Leukocyte Esterase (Negative) Urine WBC (0-5) /hpf Urine Bacteria (None) /hpf Urine Mucus (None) /hpf 01/25/25 Range/Units 05:24 RBC (3.80-5.40) m/uL Hgb (11.4-16.0) gm/dL Hct (34.0-46.0) % BUN (7-17) mg/dL Creatinine (0.52-1.04) mg/dL Glucose (74-99) mg/dL POC Glucose (mg/dL) 123 H (70-110) mg/dL Urine Appearance (Clear) Urine Protein (Negative) Urine Glucose (UA) (Negative) Urine Nitrite (Negative) Ur Leukocyte Esterase (Negative) Urine WBC (0-5) /hpf Urine Bacteria (None) /hpf Urine Mucus (None) /hpf Assessment and Plan Plan: Assessment: 1. Chronic kidney disease stage IIIa with baseline creatinine near 1-1.2 secondary to diabetic kidney disease. 2. Hypertensive urgency. Renal duplex ultrasound showed normal-sized kidneys with concern for left renal artery stenosis. No evidence of hypokalemia or alkalosis. MRA showed moderate stenosis of the proximal left renal artery. Patient has no evidence of pulmonary edema. Renal function is stable and she is tolerating her medications. No indication for vascular intervention for the renal artery stenosis at this time. 3. Diabetes mellitus. Plan: Maintain current antihypertensives. Add chlorthalidone. Also on Coreg and losartan. Follow-up renin and aldosterone levels, cortisol level and plasma metanephrines. Renin and draws drawn may not be accurate as the patient was already taking ARB. Maintain low-sodium diet. Strongly stressed compliance with patient regarding taking her antihypertensives and maintaining low-sodium diet. She was advised to monitor her blood pressure closely at home and to notify physician if staying above 140/90. Follow-up outpatient 1 week postdischarge.
--- NOTE | 2025-01-25 11:42 | P.DS ---
Providers Date of admission: 01/23/25 14:24 Expected date of discharge: 01/25/25 Attending physician: Bryce Nguyen Consults: 01/24/25 10:37 Consult Physician Routine Consulting Provider: Jeffery Robles Consult Reason/Comments: Uncontrolled HTN w/possible NAEEM Do you want consulting provider notified?: Yes Primary care physician: Yenny Perez MD Hospital Course: Discharge diagnoses; #Hypertensive urgency in the setting of chronic, uncontrolled essential hypertension #Diabetes mellitus #GERD #Hyperlipidemia #History of CKD stage IIIa, with baseline creatinine 1.1-1.2 Hospital course; 79-year-old female with PMH of hypertension, diabetes mellitus, GERD, and CKD stage IIIa, with baseline createnine 1.1-1.2, who presented to the emergency department with concerns that her blood pressure has not been well-controlled at home for the past week. She states that has been persistently elevated for some time now. The patient's daughter is at bedside while seen in the emergency department, stating that she moved back to town approximately 3 weeks ago and has noticed that it has been persistently elevated throughout the duration of her time back home. During her stay she underwent a chest x-ray which showed no acute cardiopulmonary process. She underwent a renal artery duplex ultrasound which showed abnormal elevated velocity to the left renal artery. Renal MR angiography was also completed which showed moderate stenosis involving the proximal left renal artery, mild to moderate stenosis involving the proximal celiac axis and hemosiderosis involving the liver and the spleen. During her stay she was evaluated by nephrology. Per nephrology's recommendations her nifedipine was increased to 60 mg twice daily and chlorthalidone 25 mg daily was added to her current medical management regiment. Additionally, the primary team increased her carvedilol to 12.5 mg twice daily. Discussed with the patient, with her verbal understanding/agreement, that she must maintain close follow-up with her primary care physician for control of her persistently elevated blood pressure, as well as follow-up with nephrology within 1 week following discharge. She is agreeable to this plan, and very excited at the possibility being discharged today. Physical Exam: General: nontoxic, no distress, appears at stated age Derm: warm, dry, intact Head: atraumatic, normocephalic, symmetric Eyes: EOMI, anicteric sclera Mouth: no lip lesion, mucus membranes moist Cardiovascular: S1 S2 reg, no murmur, rubs, or gallops Lungs: CTA bilateral, no rales, no accessory muscle use Abdominal: soft, non-tender to palpataion, no appreciable organomegaly Extremities: no gross muscle atrophy, no edema, no contractures Neuro: Alert, Oriented, CNII-XII grossly intact, gait normal Psych: well appearing, appropriate affect Dictation was produced using [employer] dictation software. please excuse any grammatical, word or spelling errors. Misael Chong MD PGY-1 IM A total of 38 minutes of time were spent preparing this complex discharge summary. Patient was discharged on 01/25/2025 at 932. I have seen and evaluated the patient today. Discussed with the resident and agree with the residents finding and plan as documented in the resident's note. Changes highlighted in blue font. Plan - Discharge Summary Discharge Rx Participant: Yes New Discharge Prescriptions: New carvediloL [Coreg*] 12.5 mg PO BID-W/MEALS #60 tab Chlorthalidone [Hygroton] 25 mg PO DAILY #30 tab Continue Simvastatin [Zocor] 20 mg PO HS Omeprazole 20 mg PO DAILY Insulin Glargine,Hum.rec.anlog [Lantus Solostar Pen] 5 - 6 units SQ HS Amitriptyline HCl [Elavil] 10 mg PO HS Timolol 0.5% Ophth Soln [Timoptic 0.5% Ophth Soln] 1 drop BOTH EYES DAILY Losartan Potassium 100 mg PO DAILY Cholecalciferol [Vitamin D3 (25 Mcg = 1000 Iu)] 25 mcg PO DAILY cloNIDine HCL [Catapres] 0.1 mg PO DAILY PRN PRN Reason: sbp over 180 Changed NIFEdipine [Adalat CC] 60 mg PO BID #0 Discontinued carvediloL [Coreg] 6.25 mg PO DIRECTED Discharge Medication List Simvastatin [Zocor] 20 mg PO HS 09/14/15 [History] Amitriptyline HCl [Elavil] 10 mg PO HS 12/12/24 [History] Cholecalciferol [Vitamin D3 (25 Mcg = 1000 Iu)] 25 mcg PO DAILY 12/12/24 [History] Insulin Glargine,Hum.rec.anlog [Lantus Solostar Pen] 5 - 6 units SQ HS 12/12/24 [History] Losartan Potassium 100 mg PO DAILY 12/12/24 [History] Omeprazole 20 mg PO DAILY 12/12/24 [History] Timolol 0.5% Ophth Soln [Timoptic 0.5% Ophth Soln] 1 drop BOTH EYES DAILY 01/23/25 [History] cloNIDine HCL [Catapres] 0.1 mg PO DAILY PRN 01/23/25 [History] carvediloL [Coreg*] 12.5 mg PO BID-W/MEALS #60 tab 01/24/25 [Rx] Chlorthalidone [Hygroton] 25 mg PO DAILY #30 tab 01/25/25 [Rx] NIFEdipine [Adalat CC] 60 mg PO BID #0 01/25/25 [Rx] Follow up Appointment(s)/Referral(s): Yenny Perez MD [Primary Care Provider] - 01/29/25 3:30 pm Jeffery Robles DO [STAFF PHYSICIAN] - 02/18/25 10:40 am Patient Instructions/Handouts: Chronic Hypertension (GEN) Activity/Diet/Wound Care/Special Instructions: Note changes in medications: -Take 2 60 mg Nifedipine pills every day and follow up with PCP within 1 week to inform them of this change. -Increased Coreg to 12.5mg twice daily -Added Chlorthalidone 25 mg daily Follow up with your PCP within 1 week of discharge Discharge Disposition: HOME SELF-CARE
== END 2025-01-25 11:13 | disposition home or self-care (01) ==
LOC: EC 13:04 → 6NMEDSUR 14:24
PROVIDERS: ADMIT Student in an Organized Health Care Education/Training Program; ATTEND Student in an Organized Health Care Education/Training Program
DX: I16.0 Hypertensive urgency (principal); I12.9 Hypertensive chronic kidney disease with stage 1 through stage 4 chronic kidney disease, or unspecified chronic kidney disease; N18.32 Chronic kidney disease, stage 3b; E11.22 Type 2 diabetes mellitus with diabetic chronic kidney disease; K21.9 Gastro-esophageal reflux disease without esophagitis; E78.5 Hyperlipidemia, unspecified; Z79.4 Long term (current) use of insulin; Z79.84 Long term (current) use of oral hypoglycemic drugs; Z79.899 Other long term (current) drug therapy
CPT/HCPCS: 96372 ×2; 96374; 99284; 36415; 93005; 83835; 80053; 80048; 82533; 83735; 84484; 85025 ×2; 81001; 83036; 71046; 93975; G0378 ×3; C8902; J0360; J1650 ×2; A9585; 74185; 82088; 84244

== ENCOUNTER → 2025-02-13 | Outpatient (CLI) | payer MEDICARE ==
[2025-02-13 15:32] LABS: Appearance,Urine Clear (Clear); Bilirubin,Urine Negative (Negative); Blood,Urine Negative (Negative); Color,Urine Yellow (Yellow); Ketones,Urine Negative (Negative); Nitrite,Urine Negative (Negative); Specific Gravity,Urine 1.019 (1.001-1.030); Urobilinogen,Urine 0.2 E.U./DL
[2025-02-13 15:38] LABS: Bacteria,Urine 3+ (None Seen)
[2025-02-13 15:52] LABS: Basophils # (A) 0.09 X 10*3/uL (0.00-0.10); Basophils % (A) 1.6 %; Eosinophils # (A) 0.32 X 10*3/uL (0.04-0.35); Eosinophils % (A) 5.6 %; HCT 35.6 % (37.2-46.3); HGB 10.8 g/dL (12.0-15.0); Lymphocytes # (A) 1.61 X 10*3/uL (0.90-5.00); MCHC 30.3 g/dL (32.0-37.0); MCV 92.2 FL (80.0-97.0); Mean Platelet Volume 11.5 FL (9.5-12.2); Monocytes # (A) 0.58 X 10*3/uL (0.20-1.00); Monocytes % (A) 10.1 %; NRBC Per 100 WBC 0 X 10*3/uL (0.00-0.01); Neutrophils # (A) 3.13 X 10*3/uL (1.80-7.70); Neutrophils % (A) 54.4 %; Platelet Count 335 X 10*3/uL (140-440); RBC 3.86 X 10*6/uL (4.10-5.20); RDW 14.2 % (11.5-14.5); WBC 5.75 X 10*3/uL (4.50-10.00)
[2025-02-13 16:32] LABS: % Iron Saturation 14.47 (12.00-45.00); ALT 20 U/L (8-44); AST 18 U/L (13-35); Albumin 4.1 g/dL (3.8-4.9); Albumin/Globulin Ratio 1.32 Ratio (1.60-3.17); Alkaline Phosphatase 135 U/L (41-126); BUN/Creat Ratio 31.86 Ratio (12.00-20.00); Blood Urea Nitrogen 44.6 mg/dL (9.0-27.0); Calcium 9.5 mg/dL (8.7-10.3); Carbon Dioxide 22.8 mmol/L (21.6-31.8); Chloride 106 mmol/L (96-109); Ferritin 95.8 ng/mL (10.0-291.0); Globulin 3.1 g/dL (1.6-3.3); Glucose 263 mg/dL (70-110); Iron 44 UG/DL (50-170); Magnesium 2.1 mg/dL (1.5-2.4); Phosphorus 4.2 mg/dL (2.4-5.1); Potassium 4.5 mmol/L (3.5-5.5); Sodium 140 mmol/L (135-145); Total Bilirubin 0.2 mg/dL (0.3-1.2); Total Iron Binding Capacity 304 UG/DL (228-460); Total Protein 7.2 g/dL (6.2-8.2); Uric Acid 6.8 mg/dL (2.9-7.7)
[2025-02-13 17:33] LABS: Hepatitis A Antibody IgM Nonreactive (Nonreactive); Hepatitis B Core IgM Nonreactive (Nonreactive); Hepatitis B Surface Antigen Nonreactive (Nonreactive); Hepatitis C IgG Antibody Nonreactive (Nonreactive)
[2025-02-13 18:39] LABS: Anti-DNA, DS unit <1.0 IU/mL; DNA Double-Stranded Negative (Negative)
[2025-02-13 21:14] LABS: Urine Creatinine 88.4 mg/dL (28.0-217.0)
[2025-02-14 12:09] LABS: Free Lambda Lt Chain Qnt, Seru 10.65 mg/dL (0.57-2.63)
[2025-02-14 13:53] LABS: C-ANCA <1:20 Titer (<1:20)
== END | disposition home or self-care (01) ==
LOC: LABWHC1 09:17
PROVIDERS: ATTEND Internal Medicine
DX: N18.31 Chronic kidney disease, stage 3a (principal)
CPT/HCPCS: 36415; 80053; 80074; 81001; 82043; 82306; 82570; 82728; 83516; 83540; 83550; 83735; 83883; 83970; 84100; 84166; 84550; 85025; 86039; 86160; 86225; 86255; 86334

== ENCOUNTER → 2025-05-24 | Outpatient (CLI) | payer MEDICARE ==
--- NOTE | 2025-05-24 16:54 | XR ---
EXAMINATION TYPE: XR bone survey complete DATE OF EXAM: 05/24/2025 3:24 PM COMPARISON: None. CLINICAL INDICATION: Female, 79 years old with history of D50.9 Anemia, pain TECHNIQUE: Multiple view(s) obtained. FINDINGS: Chest x-ray: Heart size is normal. Pulmonary vasculature is normal. Lungs are tear. Osseous structure s as visualized appear normal. Cervical spine: There is loss of disc height at C5-6 C6-7. No lytic lesions are evident. Posterior sp inal lamellar line space appear normal. There may be calcification at the right carotid bifurcation r egion. Skull: 2 views of the calvarium are unremarkable. No suspicious lytic areas. Humeri: AP views of the humeri are obtained. No suspicious lytic areas evident. Thoracic spine: There are 12 thoracic type vertebral bodies. Pedicles are intact. Spondylosis is pres ent. Diffuse degenerative disc changes present throughout the thoracic spine. There is some slight ex aggeration of thoracic kyphosis at this thoracic level lumbar junction region. Lumbar spine: There is loss of disc height throughout the lumbar spine. There is a retrolisthesis of L3 posterior on L5 4. Mild grade 1 spondylolisthesis of L5 anteriorly on S1 is not excluded. Vertebra l body heights are preserved. No suspicious lytic lesions identified. There are 5 lumbar-type vertebr al bodies. Pelvis: Sacroiliac joints and symphysis pubis are normal. Femoral heads articulate with the acetabulu m. No suspicious lytic lesions evident. Femurs: Femoral heads articulate with the acetabulum. No acute fractures are evident. No suspicious l ytic lesions evident. Degenerative changes are noted at the bilateral knees. IMPRESSION: 1. No suspicious lytic lesions on survey. [facility], , 05/24/2025 4:52 PM
== END | disposition home or self-care (01) ==
LOC: RADXRMAIN 14:44
PROVIDERS: ATTEND Internal Medicine Hematology & Oncology
DX: D50.9 Iron deficiency anemia, unspecified (principal); D47.2 Monoclonal gammopathy; E11.22 Type 2 diabetes mellitus with diabetic chronic kidney disease; N18.9 Chronic kidney disease, unspecified
CPT/HCPCS: 77075

== ENCOUNTER 2025-05-29 08:30 | Day surgery (SDC) | payer MEDICARE ==
[~2025-05-29 08:30] MED LIST: LIDOCAINE 1% (10MG/ML) FOR IV START INTRADERMA PRN
[2025-05-29 08:51] VITALS: TEMP 97.9
[2025-05-29] MEDS: IV FLUID CONTINUATION 1,000 ML IV ONE (08:51)
[2025-05-29 08:57] LABS: Glucose,Whole Blood 82 mg/dL (70-110)
[2025-05-29] MEDS: LACTATED RINGERS 1,000 ML IV SCH (08:58)
[2025-05-29] MEDS ORDERED: PROPOFOL 10 MG/ML 20 ML VIAL IV ONE (10:02)
[2025-05-29] MEDS ORDERED: LIDOCAINE 1% INJ 10MG/ML (20 ML MDV) ONE (10:02)
--- NOTE | 2025-05-29 10:25 | P.PCN ---
Date of Procedure: 05/29/25 Procedure(s) Performed: BRIEF HISTORY: Patient is a 79-year-old pleasant white female scheduled for an elective colonoscopy as a part of evaluation of iron deficiency anemia. Her last colonoscopy was more than 10 years ago. PROCEDURE PERFORMED: Colonoscopy. PREOPERATIVE DIAGNOSIS: Iron deficiency anemia. IV sedation per Anesthesia. PROCEDURE: After informed consent was obtained, the patient, was brought into the endoscopy unit. IV sedation was administered by Anesthesia under continuous monitoring. Digital rectal examination was normal. Initially the Olympus CF-160 flexible video colonoscope was then inserted in the rectum, gradually advanced into the cecum without any difficulty. Careful examination was performed as the scope was gradually being withdrawn. Ileocecal valve and the appendiceal orifice were visualized and appeared normal. Prep was excellent. Mucosa of the cecum, ascending colon, transverse colon, descending colon, sigmoid colon, and rectum appeared normal. Moderate sigmoid diverticulosis. Retroflexion was performed in the rectum and no lesions were seen. The patient tolerated the procedure well. IMPRESSION: Normal-appearing colon from rectum to cecum with no evidence of colorectal neoplasia. Moderate sigmoid diverticulosis RECOMMENDATIONS: Findings of this examination were discussed with the patient as well as her family. She was advised to high-fiber diet and take fiber supplements on a regular basis..
[2025-05-29 10:33] VITALS: RESP 16
[2025-05-29 10:47] VITALS: BP 164/71; PULSE 78
[2025-05-29 10:50] LABS: Glucose,Whole Blood 87 mg/dL (70-110)
== END 2025-05-29 11:06 | disposition home or self-care (01) ==
LOC: ORWHC2ENDO 08:30
PROVIDERS: ATTEND Internal Medicine Gastroenterology
DX: D50.9 Iron deficiency anemia, unspecified (principal); K57.30 Diverticulosis of large intestine without perforation or abscess without bleeding; I10 Essential (primary) hypertension; E78.5 Hyperlipidemia, unspecified; E11.9 Type 2 diabetes mellitus without complications; K21.9 Gastro-esophageal reflux disease without esophagitis; N28.9 Disorder of kidney and ureter, unspecified; M19.90 Unspecified osteoarthritis, unspecified site; Z79.4 Long term (current) use of insulin; Z79.899 Other long term (current) drug therapy; Z88.8 Allergy status to other drugs, medicaments and biological substances
CPT/HCPCS: 45378; J2003; J2704